=== PATIENT | female | born 2005 | race Caucasian/White ===

== ENCOUNTER 2025-03-29 12:42 | Day surgery (SDC) | payer BC, SELFPAY ==
[2025-03-29] VITALS (11 sets, daily range): BP systolic 101–121; BP diastolic 57–82; PULSE 69–103; RESP 12–20; TEMP 36.1–36.4; O2SAT 98–100
--- NOTE | ~2025-03-29 | CT_ITS ---
Yary Morales EXAMINATION: CT abdomen pelvis w con COMPARISON: None HISTORY: periumbilical pain, N/V TECHNIQUE: Axial images were obtained through the abdomen, pelvis post administration of IV contrast. Oral contrast was also administered. Coronal reconstruction images were obtained from the axial views. CT scan performed using dose optimization techniques including the following automated exposure control; adjustment of mA and/or kV; use of iterative reconstruction technique. Automatic exposure control was used to reduce radiation dose. Permanent radiation dose record is archived to PACS. FINDINGS: CT abdomen: LUNG BASES: The lung bases are clear. The visualized portions of the heart and pericardium are unremarkable. LIVER: Unremarkable, liver contours intact, no lesions. SPLEEN: Unremarkable. KIDNEYS: Right Kidney: Unremarkable. No calculi. No hydronephrosis. Left Kidney: Unremarkable. No calculi. No hydronephrosis ADRENAL GLANDS: Unremarkable. PANCREAS: Unremarkable. GALLBLADDER/BILIARY: Unremarkable. No biliary dilatation. STOMACH AND ESOPHAGUS: Visualized stomach and esophagus within normal limits. BOWEL/MESENTERY: Moderate fecal content. No colitis or diverticulitis. Appendix is thickened measuring 7 mm although there is no periappendiceal inflammation identified.. Mesentery normal. Small bowel normal. ADENOPATHY/RETROPERITONEUM: No lymphadenopathy. AORTA/VASCULATURE: Normal caliber aorta. FREE FLUID OR FREE AIR: No free fluid.. CT pelvis: SOLID ORGANS/REPRODUCTIVE: Unremarkable. BLADDER: Within normal limits. OSSEOUS STRUCTURES: No acute osseous abnormality.No suspicious lesions. OVERLYING SOFT TISSUES: Unremarkable. IMPRESSION: Correlate for symptoms of early appendicitis. Reviewed, dictated and finalized at location P.
--- OUTSIDE RECORDS SUMMARY | 2025-03-29 13:43 | XMS_ITS | Clinical Summary ---
Author Organization [facility] Address [address] [place] [address] Care Team Providers Care Transport Company Manager Name Role Phone Unavailable Primary Care Provider Unavailabl e Social History Tobacco Use Types Packs/Day Years Used Date Smoking Tobacco: Never Assessed Comments Unknown Sex and Gender Information Value Date Recorded Sex Assigned at Not on file Legal Sex Female 11:19 AM CDT Gender Identity Not on file Sexual Orientation Not on file Plan of Treatment Health Maintenance Due Date Last Done Comments Hepatitis C Virus (HCV) Screening 2004 Meningococcal B Immunization (1 of 2 - Standard) 2020 Hepatitis B Immunization (1 of 3 - 19+ 3-dose series) 2023 Influenza Immunization (#1) 02/27/202504/29, 05/10/2018, 07/31/2017, Additional history exists SARS-COV-2 Immunization (2 - 2024- season) 2025 10/24/2020 Respiratory Syncytial Virus (RSV) Immunization (Adult) (1 - 1-dose 75+ series) 2079 DTaP/Tdap/Td Immunization Discontinued 02/12/2016 Meningococcal Immunization (ACWY) Aged Out 02/12/2016 No longer eligible based on patient's age to complete this topic TdaP Immunization Completed 02/12/2016 Human Papillomavirus (HPV) Immunization Completed 08/23/2018, 02/18/2018 Pneumococcal Immunization Combined Aged Out No longer eligible based on patient's age to complete this topic Rotavirus Immunization Aged Out No lo nger eligible based on patient's age to complete this topic
--- OUTSIDE RECORDS SUMMARY | 2025-03-29 13:43 | XMS_ITS | Clinical Summary ---
Author Organization [facility] Address [address] [place] [address] Care Team Providers Care Textile Chemist Name Role Phone Ja Howe MD Unavailable [phone] Ja Howe MD Primary Care Provider [phone] Source Comments [facility],non-owned Affiliates and Associated Physician Practices is amultiple site organization consisting of ambulatory clinics and hospital sitesin [place], [place], [place] and [place]. This disclosure is being madepursuant to the Care Everywhere program and may not contain all information available regarding this patient. Last updated 18.[facility] Allergies Active Allergy Reactions Criticality Noted Date Comments Shellfish Allergy Urticaria Medium 01/30/2025 Medications * Be aware that medications may not be up to date on this document. Alwaysverify current medications with the patient. propranolol (Inderal) 20 MG tablet Take 1 (one) tablet by mouth 2 times daily 60 tablet 3 12/15/2024 Active citalopram (CeleXA) 10 MG tablet Take 1 (one) tablet by mouth once daily 90 tablet 1 02/20/2025 Active Active Problems Problem Noted Date Diagnosed Date Anxiety 01/31/2025 Screening for condition 02/18/2018 Overview (02/28/2018): 08/11/09 PPD neg 02/18/18 POC Lipid profile WNL Scoliosis 02/18/2018 Overview (02/28/2018): 02/18/18 Scoliosis series ordered Wears glasses 02/12/2016 Keratosis pilaris 08/08/2009 Overview (02/28/2018): 08/08/09 OTC Lachydrin Well child visit 2004 Overview (01/03/2019): 6 d/o 04 1 mo 06/17/09 2 mo 04 4 mo 04 5 mo 04 9 mo 02/17/05 12 mo 05/16/05 15 mo 08/19/05 18 mo 11/17/05 1 yo 05/26/06 2 yo 05/18/07 3 yo 05/16/08 4 yo 08/08/09 5 yo No WCC 7 yo No WCC 8 yo No WCC 9 yo No WCC 9 yo 02/09/15 10 yo 02/12/16 11 yo 02/20/17 12 yo 02/18/18 13 yo 01/03/19 Resolved Problems Problem Noted Date Diagnosed Date Resolved Date Hamstring strain 10/16/2016 02/18/2018 Acute pain of right knee 09/19/2016 Influenza 08/28/2015 02/18/2018 Overview (08/28/2015): 08/28/15 Tamiflu Head injury 09/14/2010 02/18/2018 Overview (09/29/2010): 09/14/10 [facility] ER Croup 08/26/2010 02/18/2018 Overview (07/21/2011): 08/26/10 oral steroids 07/11/11 oral steroids Otitis media, acute 10/02/2009 02/19/20 18 Overview (02/28/2018): 07/01/06 Right (amox) 07/20/06 Right (Cefzil - phone script) 04/03/08 Right (Cefzil) 07/10/08 Left (Zithromax) 10/02/09 Right (Zithromax) Acute sinusitis 10/02/2009 02/18/2018 Overview (10/02/2009): 10/02/09 Zithromax Streptococcal pharyngitis 05/28/2007 Overview (08/28/2015): 05/28/07 (cefzil) 07/11/11 (amox) 03/06/12 amox 08/28/15 Amoxicillin Closed head injury 01/05/2006 8 Overview (03/10/2009): [facility] - nl CT Head Pityriasis rosea 11/05/2005 02/18/2018 Overview (08/17/2011): 11/05/05 08/12/11 Labial adhesions 2004 02/18/2018 Encounters Date Type Department Care Team Description 02/20/2025 Refill [facility] - Pediatrics [address] [place] [address] Ja Howe MD MEDICATION REFILL 01/30/2025 11:00 AM CDT Office Visit [facility] - Pediatrics [address] [place] [address] Shelley Mcdonald MD Anxiety (Primary Dx); Screening for deficiency anemia 01/19/2025 Refill [facility] - Pediatrics [address] [facility] [address] [place] [address] Ja Howe MD MEDICATION REFILL from Last 3 Months Immunizations Immunization Administration Dates Next Due Covid Pfizer primary Monoval ent 12+ yr 0.3ml 08/26/2021 Covid Pfizer primary monoval ent 12+ yr 0.3mL Purple cap 11/14/2020,10/24/2020 DTaP VACCINE IM (6wk-6yrs) 08/08/2009,,2004,09/17,2004 HEP A PEDS 2 DOSE 05/26/2006,11/17/2005 HEP B VACCINE, PED/ADOL 2004,09/17,2004,05/15 HIB BOOSTER 08/19/2005, 5,2004,07/19 Human Papilloma Virus Nineva lent Vaccine 08/23/2018,02/18/2018 INFLUENZA VACCINE, QUADR. (F LUZONE; FLULAVAL; FLUARIX; AFLURIA QUADRIVALENT; 6MO+), 0.5 ML (IIV4) 05/17/2019,05/10/2018,07/31/2017 Influenza Nasal 04/15/2012 CULLEN VACCINE QUAD LAIV4 PF NASAL 05/02/2013 MENINGOCOCAL MENINGITIS 01/04/2021 MENINGOCOCCAL ACWY (MCV4P) VAC IM 02/12/2016 MENINGOCOCCAL B VACCINE 01/15/2022,01/04/2021 MMR 08/08/2009,05/16/2005 PNEUMOCOCCAL CONJ, PEDS 08/19/2005,11/18,2004,07/19 POLIO IPV 08/08/2009, 5,2004,07/19 TDAP (7yrs+) 02/12/2016 VARICELLA 08/08/2009,05/16/2005 Social History Tobacco Use Types Packs/Day Years Used Date Smoking Tobacco: Never Smokeless Tobacco: Never Alcohol Use Standard Drinks/Week Comments Not Asked 0 (1 standard drink = 0.6 oz pur e alcohol) PHQ-2 Answer Date Recorded Patient Health Questionnaire-2 Score 2 01/30/2025 Comments No Sex and Gender Information Value Date Recorded Sex Assigned at Not on file 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 Gender Identity Not on file Sexual Orientation Not on file Last Filed Vital Signs Vital Sign Reading Time Taken Comments Blood Pressure 110/62 01/30/2025 11:39 AM CDT Pulse 101 01/30/2025 11:39 AM CDT Temperature 36.6 C (97.9 F) 01/30/2025 11:39 AM CDT Respiratory Rate - - Oxygen Saturation 99% 01/30/2025 11:39 AM CDT Inhaled Oxygen Concentration - - Weight 61.5 kg (135 lb 9.6 oz) 01/30/2025 11:39 AM CDT Height 165.1 cm (5' 5) 01/30/2025 11:39 AM CDT Body Mass Index 22.57 01/30/2025 11:39 AM CDT Plan of Treatment Health Maintenance Due Date Last Done Comments HIV SCREENING 2019 MENINGOCOCCAL (Group B) VACC INE SHARED DECISION-MAKING (1 of 2 - Standard) 02/12/2022 01/15/2022, 01/04/2021 HEPATITIS C SCREENING 05/10/2022 CHLAMYDIA/GONORRHEA SCREENING 08/05/2023 08/05/2022 COVID-19 VACCINE (2024- 6 season) 2025 08/26/2021, 11/14/2020, 10/24/2020 INFLUENZA VACCINE (#1) 2025 9, 05/10/2018, 07/31/2017, Additional history exists DTAP/TDAP/TD VACCINES (7 - T d or Tdap) 02/11/2026 02/12/2016, 08/08/2009, 08/19/2005, Additional history exists ZOSTER VACCINE (1 of 2) 2054 HEPATITIS B VACCINE Completed 2004, 2004, 2004, Additional history exists HIB VACCINE Completed 08/19/2005, 10/28, 2004, Additional history exists PNEUMOCOCCAL VACCINE Completed 08/19/2005, 2004, 2004, Additional history exists HPV VACCINE Completed 08/23/2018, 02/18/2018 MENINGOCOCCAL GROUPS A/C/Y/W VACCINE Completed 01/04/2021, 02/12/2016 DEPRESSION SCREENING Completed 01/30/2025 Goals Goal Patient Goal Type Associated Problems Recent Progress Patient-Stated? Author Use safety retraint in car Lifestyle On track( 019 1:28 PM CDT) No Anne-Marie Vazquez Procedures Procedure Name Priority Date/Time Associated Diagnosis Comments HEMOGLOBIN - POINT OF CARE (AMB) Routine 01/30/2025 12:11 PM CDT Screening for deficiency anemia from Last 3 Months Results * HEMOGLOBIN - POINT OF CARE (AMB) (01/30/2025 12:11 PM CDT) Hemoglobin POCT 12.9 12.0 - 15.0 gm/dL DERICK JARQUIN Blood BLOOD SPECIMEN / Unknown 01/30/2025 12:11 PM CDT us Shelley Mcdonald MD LAB - POINT OF CARE ORDERABLES Final Result Performing Organization Address City/State/[facility] Co de Phone Number [facility] BRION[facility] JARQUIN [address] [place], [place] [address] [phone] from Last 3 Months Insurance [facility] Address: [facility] [address] [place] [address] [employer] Care Teams Textile Chemist Relationship Specialty Start Date End Date Ja Howe MD PCP - Pediatrics 10/02/09 Ja Howe MD PCP - General Pediatrics 12/13/14
--- OUTSIDE RECORDS SUMMARY | 2025-03-29 13:43 | XMS_ITS | Clinical Summary ---
Author Organization [facility] Address [address] [place] [address] Care Team Providers Care Blindstitch Lapel Padder Name Role Phone Shelley Mcdonald MD Primary Care Provider [phone] Allergies No known active allergies Medications Tri Femynor 0.18/0.215/0.25 mg-35 mcg (28) per tablet Take 1 tablet by mouth daily 10/31/19 22 Active triamcinolone (KENALOG) 0.1 % ointment APPLY TO AFFECTED AREA TWICE A DAY X2 WEEKS. MAY USE 2 WEEKS ON THEN 2 WEEKS OFF 09/17/19 22 Active ondansetron ODT (ZOFRAN-ODT) 4 mg disintegrating tablet Take 1 tablet (4 mg total) by mouth every 12 (twelve) hours as needed for nausea or vomiting Dissolve in mouth just prior to taking medications. 30 tablet 1 02/29/20 22 Active Additional Information Patient not taking.Reported on 04/01/2024 citalopram (CeleXA) 10 mg tablet Take 0.5 tablets (5 mg total) by mouth daily 07/04/19 23 Active nitrofurantoin monohydrate (MACROBID) 100 mg capsule TAKE 1 CAPSULE BY MOUTH EVERY DAY X1 DOSE AFTER SEXUAL ACTIVITY 06/17/20 22 Active phenazopyridine (PYRIDIUM) 200 mg tablet Take 200 mg by mouth 3 (three) times a day 06/14/20 22 Active sertraline (ZOLOFT) 25 mg tablet Take 25 mg by mouth daily 05/19/20 22 Active omeprazole (PriLOSEC) 20 mg capsule Take 1 capsule (20 mg total) by mouth daily 30 capsule 5 07/16/19 23 Active Lyssa Fe 07/18, 28, 1 mg-20 mcg (21)/75 mg (7) per tablet 12/29/19 24 Active Hospital, Clinic, or Other Facility Administered Medication Ordered Dose Route Frequency Start Date End Date Status etonogestreL (NEXPLANON) implant 68 mgIndications:Pregna ncy Contraception 68 mg subderm Continuous (implanted device) 04/01/2024 04/01/2027 Active Active Problems Problem Noted Date Diagnosed Date Gastritis, Helicobacter pylori 03/24/2022 Lactose intolerance 03/24/2022 Abdominal pain, epigastric 11/18/2021 Weight loss 11/18/2021 Surgical History Surgery Date Site/Laterality Comments NO PAST SURGERIES Medical History Medical History Date Comments Known health problems: none Family History Medical History Relation Name Comments Breast cancer Neg Hx Inflammatory bowel disease Neg Hx Ovarian cancer Neg Hx Uterine cancer Neg Hx Social History Tobacco Use Types Packs/Day Years Used Date Smoking Tobacco: Never Assessed Tobacco Cessation:Counseling Given: No Alcohol Use Standard Drinks/Week Comments Never 0 (1 standard drink = 0.6 oz pur e alcohol) Comments No Sex and Gender Information Value Date Recorded Sex Assigned at Not on file 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 Gender Identity Not on file Sexual Orientation Not on file Obstetrics History Para Term AB IAB SAB Ectopic Multiple Livin g Live Births 0 0 0 0 0 0 0 0 0 0 0 Comments 13/0/0 Last Filed Vital Signs Vital Sign Reading Time Taken Comments Blood Pressure 112/70 04/01/2024 10:23 AM CDT Pulse 85 02/24/2022 3:34 PM CDT Temperature 36.2 C (97.1 F) 02/24/2022 3:34 PM CDT Respiratory Rate 16 02/24/2022 3:34 PM CDT Oxygen Saturation 99% 02/24/2022 3:34 PM CDT Inhaled Oxygen Concentration - - Weight 68 kg (150 lb) 04/01/2024 10:23 AM CDT Height 160 cm (5' 3) 04/01/2024 10:23 AM CDT Body Mass Index 26.57 04/01/2024 10:23 AM CDT Plan of Treatment Health Maintenance Due Date Last Done Comments Chlamydia and Gonorrhea (GC/CT) Screening 2004 Depression Screening 2004 Hepatitis C Screening 2004 Meningococcal B Vaccine (1 of 2 - Standard) 2020 Regular Well Visit/Exam 18-64 2022 Covid-19 Vaccine ( - season) 2025 08/26/2021, 11/14/2020, 10/24/2020 Influenza Vaccine (#1) 2025 9, 05/10/2018, 07/31/2017, Additional history exists DTaP/Tdap/Td Vaccine (7 - Td or Tdap) 02/11/2026 02/12/2016, 08/08/2009, 08/19/2005, Additional history exists Hepatitis B Screening Completed 2004 , 2004, 2004, Additional history exists Varicella Vaccines Completed 08/08/2009, 05/16/2005 Meningococcal Vaccine Aged Out 02/12/2016 No amy radha eligible based on patient's age to complete this topic HPV Vaccines Completed 08/23/2018, 02/18/2018 Pneumococcal vaccine <65 Aged Out No longer eligible based on patient's age to complete this topic Insurance [employer] [address] [place] [id number] [employer] Care Teams Blindstitch Lapel Padder Relationship Specialty Start Date End Date Shelley Mcdonald MD PCP - General 02/13/20
--- OUTSIDE RECORDS SUMMARY | 2025-03-29 13:43 | XMS_ITS | Encounter Summary ---
Author Organization [facility] Address [address] [place] [address] Care Team Providers Care Environmental Analyst Name Role Phone Ja Howe MD Unavailable [phone] Ja Howe MD Primary Care Provider [phone] Reason for Visit * Reason Onset Date Comments MEDICATION REFILL 12/15/2024 Encounter Details Date Type Department Care Team (Late st Contact Info) Description 12/15/2024 Telephone [facility] - Pediatrics [address] [place] [address] Ja Howe MD [address] [place] [address] MEDICATION REFILL Social History Tobacco Use Types Packs/Day Years Used Date Smoking Tobacco: Never Smokeless Tobacco: Never Alcohol Use Standard Drinks/Week Comments Not Asked 0 (1 standard drink = 0.6 oz pur e alcohol) Comments No Sex and Gender Information Value Date Recorded Sex Assigned at Not on file 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 * Telephone Encounter - Ketty Seals - 12/15/2024 10:23 AM CDT MEDICATION REFILL REQUEST Allergies Reviewed: Yes Verified Pharmacy with patient: Yes Outstanding lab work: No If yes, please direct to have completed. Last Office Visit: 09/05/2024 Last Video Visit with PCP: Visit date not found Next Appointment with PCP: 01/30/2025 Last Refill: 12/16/2023 Propranolol Hcl 20 mg oral tablet Sent to RX REFILL POOL for approval/denial. documented in this encounter Plan of Treatment Not on file documented as of this encounter Goals Goal Patient Goal Type Associated Problems Recent Progress Patient-Stated? Author Use safety retraint in car Lifestyle On track( 019 1:28 PM CDT) No Anne-Marie Vazquez documented as of this encounter Visit Diagnoses Not on filedocumented in this encounter Care Teams Environmental Analyst Relationship Specialty Start Date End Date Ja Howe MD PCP - Pediatrics 10/02/09 Ja Howe MD PCP - General Pediatrics 12/13/14 documented as of this encounter
[2025-03-29 14:40] LABS: BEDSIDEPREGUCG Negative (Negative)
[2025-03-29 14:43] LABS: Hematocrit 38.1 % (37.0-47.0); Hemoglobin 12.2 g/dL (12.0-15.0); Mean Corpuscular HGB Conc 32.0 g/dl (32-36); Mean Corpuscular Hemoglobin 28.0 pg (26-34); Mean Corpuscular Volume 87.6 fl (80-100); Platelet Count Result 307 k/mm3 (150-375); Red Blood Count 4.35 M/mm3 (4.2-5.4); White Blood Count 12.8 K/mm3 (4.5-10.0)
[2025-03-29 14:58] LABS: Alanine Aminotransferase 18 U/L (6-35); Albumin Level 4.5 g/dL (3.5-5.1); Alkaline Phosphatase 124 U/L (38-126); Anion Gap 10 mmol/L (4-12); Aspartate Amino Transferase 23 U/L (14-36); Bilirubin,Total 0.7 mg/dL (0.2-1.3); Blood Urea Nitrogen 11 mg/dL (7-17); Calcium 9.4 mg/dL (8.4-10.2); Carbon Dioxide 22 mmol/L (22-30); Chloride 104 mmol/L (98-107); Estimated CRCL calculation 114 ml/min; Estimated Glomerular Filt Rate > 60; Glucose 104 mg/dL (65-110); Lipase 50 U/L (23-300); Potassium 4.2 mmol/L (3.4-5.0); Sodium 136 mmol/L (137-145); Total Protein 8.2 g/dL (6.3-8.2)
[2025-03-29 14:59] LABS: Add Urine Microscopic? YES; Appearance Urine Cloudy (Clear); Glucose Urine UA Negative (Negative); Leukocyte Esterase Ur 1+ LEU/UL (Negative); Need Manual Microscopic Reviewed; Nitrate Urine Negative (Negative); Non Pathogenic Casts 0-2; Specific Grav Ur 1.023 (1.001-1.035)
--- NOTE | 2025-03-29 15:04 | ED_ITS ---
HPI - Abdominal Pain General Chief Complaint: Abdominal Pain <RENUKA Newberry Last Filed: 03/29/25 16:12> Stated Complaint: Uncontrolled N/V x 6hrs-abdominal pain <RENUKA Newberry Last Filed: 03/29/25 16:12> Time Seen by Provider: 03/29/25 13:07 <RENUKA Newberry Last Filed: 03/29/25 16:12> Source: patient <RENUKA Newberry Last Filed: 03/29/25 16:12> Mode of arrival: ambulatory <RENUKA Newberry Last Filed: 03/29/25 16:12> Limitations: no limitations <RENUKA Newberry Last Filed: 03/29/25 16:12> History of Present Illness HPI narrative: Patient is a 19-year-old female who presents the ED with report of abdominal pain. Patient reports having diffuse abdominal pain since around 5:00 a.m. this morning. Began in her periumbilical region and spreads diffusely throughout her mid to lower abdomen. Reports nausea, vomiting, difficulty keeping down food and drink. Denies diarrhea, fevers, constipation, urinary complaints. <RENUKA Newberry Last Filed: 03/29/25 16:12> Related Data Allergies/Adverse Reactions: Allergies Allergy/AdvReac Type Severity Reaction Status Date / Time shellfish derived AdvReac Intermediate Hives Verified 03/29/25 12:59 <RENUKA Newberry Last Filed: 03/29/25 16:12> Review of Systems 2 Review of Systems: All systems reviewed & are unremarkable except as noted in HPI. <RENUKA Newberry Last Filed: 03/29/25 16:12> All systems reviewed & are unremarkable except as noted in HPI and below < RENUKA Newberry Last Filed: 03/29/25 16:12> PMFSH Past Medical History Medical History: Medical History Headaches due to old head injury Depression <Genevieve Chaudhry PA-C - Last Filed: 03/29/25 16:12> Surgical History Surgical History: Surgical History History of esophagogastroduodenoscopy (EGD) <Genevieve Chaudhry PA-C - Last Filed: 03/29/25 16:12> Exam 2 Narrative: GENERAL: Well appearing, well-nourished, non-toxic, in no acute distress. HEAD: Normocephalic, atraumatic. RESPIRATORY: Airway patent, respirations nonlabored. Clear to auscultation bilaterally, no rales, rhonchi, wheezing. CARDIOVASCULAR: Regular rate and rhythm without murmurs, rubs, or gallops. ABDOMINAL: Soft, mild diffuse tenderness throughout lower abdomen/periumbilical region, no rebound, nondistended. Normoactive BS. MUSCULOSKELETAL: Moves all extremities. No gross deformities. SKIN: Warm, dry, normal color. NEURO: A&O X3. Speech clear. PSYCHIATRIC: Appropriate mood and affect. Normal interaction. <Genevieve Chaudhry PA-C - Last Filed: 03/29/25 16:12> Course ZOOLOGY TEACHER/PA Physician Supervision This visit was performed by both a physician and an APC. I performed all aspects of the MDM as documented. <Young Clark MD - Last Filed: 03/29/25 18:46> Vital Signs Vital signs: Vital Signs Temperature 97.6 F 03/29/25 12:54 Pulse Rate 69 03/29/25 12:54 Respiratory Rate 19 03/29/25 12:54 Blood Pressure 116/57 L 03/29/25 12:54 Pulse Oximetry 100 03/29/25 12:54 Oxygen Delivery Room Air 03/29/25 12:54 Temperature 97.0 F L 03/29/25 18:05 Pulse Rate 85 03/29/25 18:30 Respiratory Rate 20 03/29/25 18:30 Blood Pressure 121/69 03/29/25 18:30 Pulse Oximetry 99 03/29/25 18:30 Oxygen Delivery Room Air 03/29/25 18:30 Oxygen Flow Rate 8 03/29/25 18:15 <Genevieve Chaudhry PA-C - Last Filed: 03/29/25 16:12> Vital Signs Temperature 97.6 F 03/29/25 12:54 Pulse Rate 69 03/29/25 12:54 Respiratory Rate 19 03/29/25 12:54 Blood Pressure 116/57 L 03/29/25 12:54 Pulse Oximetry 100 03/29/25 12:54 Oxygen Delivery Room Air 03/29/25 12:54 Temperature 97.0 F L 03/29/25 18:05 Pulse Rate 85 03/29/25 18:30 Respiratory Rate 20 03/29/25 18:30 Blood Pressure 121/69 03/29/25 18:30 Pulse Oximetry 99 03/29/25 18:30 Oxygen Delivery Room Air 03/29/25 18:30 Oxygen Flow Rate 8 03/29/25 18:15 <Young Clark MD - Last Filed: 03/29/25 18:46> MDM - Abdominal Pain MDM Narrative Medical decision making narrative: Patient presented to ED with abdominal pain that began around 5:00 a.m. this morning, nausea, vomiting. Vital signs stable upon arrival. Patient afebrile. Cbc with white blood cell count of 12.8, 88% neutrophils. CMP unremarkable. UA without significant signs of infection. Urine is negative. CT scan of abdomen/pelvis was obtained and consistent with possible early appendicitis. Will discuss with General surgery. Patient is feeling improved with supportive therapy in the ED but still having some discomfort throughout lower abd. [place] and Dr. Hardwick with general surgery in the ED to see patient. Will take patient to the OR today for appendectomy. Patient in agreement with plan. Given dose of zosyn. <Genevieve Chaudhry PA-C - Last Filed: 03/29/25 16:12> Patient presented to ED with abdominal pain that began around 5:00 a.m. this morning, nausea, vomiting. Vital signs stable upon arrival. Patient afebrile. Cbc with white blood cell count of 12.8, 88% neutrophils. CMP unremarkable. UA without significant signs of infection. Urine is negative. CT scan of abdomen/pelvis was obtained and consistent with possible early appendicitis. Will discuss with General surgery. Patient is feeling improved with supportive therapy in the ED but still having some discomfort throughout lower abd. [place] and Dr. Hardwick with general surgery in the ED to see patient. Will take patient to the OR today for appendectomy. Patient in agreement with plan. Given dose of zosyn. -- This visit was performed by both a physician and an APC. I performed all aspects of the MDM as documented. <Young Clark MD - Last Filed: 03/29/25 18:46> Medical Records Attestation: I reviewed the patient's medical records. <Genevieve Chaudhry PA-C - Last Filed: 03/29/25 16:12> Lab Data Attestation: I reviewed the patient's lab results. <Genevieve Chaudhry PA-C - Last Filed: 03/29/25 16:12> Result diagrams: 03/29/25 14:29 03/29/25 14:29 <Genevieve Chaudhry PA-C - Last Filed: 03/29/25 16:12> Labs: Lab Results 03/29/25 03/29/25 Range/Units 14:29 14:30 WBC 12.8 H (4.5-10.0) K/mm3 RBC 4.35 (4.2-5.4) M/mm3 Hgb 12.2 (12.0-15.0) g/dL Hct 38.1 (37.0-47.0) % MCV 87.6 (80-100) fl MCH 28.0 (26-34) pg MCHC 32.0 (32-36) g/dl RDW 12.5 (11.5-14.5) % Plt Count 307 (150-375) k/mm3 MPV 9.6 (7.4-10.4) fl Immature Gran % (Auto) Not Reportable Neut % (Auto) Not Reportable Lymph % (Auto) Not Reportable [place] % (Auto) Not Reportable Eos % (Auto) Not Reportable Baso % (Auto) Not Reportable Lymph # (Auto) Not Reportable [place] # (Auto) Not Reportable Eos # (Auto) Not Reportable Baso # (Auto) Not Reportable Abs Immat Gran (auto) Not Reportable Absolute Neuts (auto) Not Reportable Absolute Nucleated RBC Not Reportable Total Counted 100 Neutrophils % (Manual) 88 H (46-73) % Band Neutrophils % 0 (0-6) % Lymphocytes % (Manual) 11 L (18-44) % Monocytes % (Manual) 1 L (3-9) % Eosinophils % (Manual) 0 (0-4) % Basophils % (Manual) 0 (0-1) % Nucleated RBC % Not Reportable Abs Neuts (Manual) 11.26 H (1.3-6.7) K/mm3 Abs Lymphs (Manual) 1.40 (1.1-4.5) K/mm3 Abs Monocytes (Manual) 0.12 (0.1-0.90) K/mm3 Absolute Eos (Manual) 0.00 L (0.02-0.50) K/mm3 Abs Basophils (Manual) 0.00 (0.0-0.1) K/mm3 Atypical Lymphocytes Present Platelet Estimate Adequate (Adequate) Schistocytes None seen Sodium 136 L (137-145) mmol/L Potassium 4.2 (3.4-5.0) mmol/L Chloride 104 (98-107) mmol/L Carbon Dioxide 22 (22-30) mmol/L Anion Gap 10 (4-12) mmol/L BUN 11 (7-17) mg/dL Creatinine 0.60 L (0.7-1.0) mg/dL Estim Creat Clear Calc 114 ml/min Estimated GFR > 60 (59 - ) Glucose 104 (65-110) mg/dL Calcium 9.4 (8.4-10.2) mg/dL Total Bilirubin 0.7 (0.2-1.3) mg/dL AST 23 (14-36) U/L ALT 18 (6-35) U/L Alkaline Phosphatase 124 (38-126) U/L Total Protein 8.2 (6.3-8.2) g/dL Albumin 4.5 (3.5-5.1) g/dL Lipase 50 (23-300) U/L Urine Color Yellow (Yellow) Urine Appearance Cloudy H (Clear) Urine pH 5.5 (5.0-9.0) Ur Specific [place] 1.023 (1.001-1.035) Urine Protein Negative (Negative) mg/dL Urine Glucose (UA) Negative (Negative) mg/dL Urine Ketones Trace H (Negative) mg/dL Ur Blood (Man) Trace (Negative) Urine Nitrate Negative (Negative) Urine Bilirubin Negative (Negative) Urine Urobilinogen 0.2 (<2.0) mg/dL Add Ur Microanalysis Reviewed Leukocyte Esterase Rfl 1+ H (Negative) JOZEF/UL Urine RBC 6-10 H (0-2) /hpf Urine WBC 0-5 (0-3) /hpf Ur Squamous Epith Cells Few (Few) /hpf Urine Bacteria 1+ H /hpf Urine Casts 0-2 POC Urine HCG, Qual Negative (Negative) <Genevieve Chaudhry PA-C - Last Filed: 03/29/25 16:12> Lab Results 03/29/25 03/29/25 Range/Units 14:29 14:30 WBC 12.8 H (4.5-10.0) K/mm3 RBC 4.35 (4.2-5.4) M/mm3 Hgb 12.2 (12.0-15.0) g/dL Hct 38.1 (37.0-47.0) % MCV 87.6 (80-100) fl MCH 28.0 (26-34) pg MCHC 32.0 (32-36) g/dl RDW 12.5 (11.5-14.5) % Plt Count 307 (150-375) k/mm3 MPV 9.6 (7.4-10.4) fl Immature Gran % (Auto) Not Reportable Neut % (Auto) Not Reportable Lymph % (Auto) Not Reportable [place] % (Auto) Not Reportable Eos % (Auto) Not Reportable Baso % (Auto) Not Reportable Lymph # (Auto) Not Reportable [place] # (Auto) Not Reportable Eos # (Auto) Not Reportable Baso # (Auto) Not Reportable Abs Immat Gran (auto) Not Reportable Absolute Neuts (auto) Not Reportable Absolute Nucleated RBC Not Reportable Total Counted 100 Neutrophils % (Manual) 88 H (46-73) % Band Neutrophils % 0 (0-6) % Lymphocytes % (Manual) 11 L (18-44) % Monocytes % (Manual) 1 L (3-9) % Eosinophils % (Manual) 0 (0-4) % Basophils % (Manual) 0 (0-1) % Nucleated RBC % Not Reportable Abs Neuts (Manual) 11.26 H (1.3-6.7) K/mm3 Abs Lymphs (Manual) 1.40 (1.1-4.5) K/mm3 Abs Monocytes (Manual) 0.12 (0.1-0.90) K/mm3 Absolute Eos (Manual) 0.00 L (0.02-0.50) K/mm3 Abs Basophils (Manual) 0.00 (0.0-0.1) K/mm3 Atypical Lymphocytes Present Platelet Estimate Adequate (Adequate) Schistocytes None seen Sodium 136 L (137-145) mmol/L Potassium 4.2 (3.4-5.0) mmol/L Chloride 104 (98-107) mmol/L Carbon Dioxide 22 (22-30) mmol/L Anion Gap 10 (4-12) mmol/L BUN 11 (7-17) mg/dL Creatinine 0.60 L (0.7-1.0) mg/dL Estim Creat Clear Calc 114 ml/min Estimated GFR > 60 (59 - ) Glucose 104 (65-110) mg/dL Calcium 9.4 (8.4-10.2) mg/dL Total Bilirubin 0.7 (0.2-1.3) mg/dL AST 23 (14-36) U/L ALT 18 (6-35) U/L Alkaline Phosphatase 124 (38-126) U/L Total Protein 8.2 (6.3-8.2) g/dL Albumin 4.5 (3.5-5.1) g/dL Lipase 50 (23-300) U/L Urine Color Yellow (Yellow) Urine Appearance Cloudy H (Clear) Urine pH 5.5 (5.0-9.0) Ur Specific [place] 1.023 (1.001-1.035) Urine Protein Negative (Negative) mg/dL Urine Glucose (UA) Negative (Negative) mg/dL Urine Ketones Trace H (Negative) mg/dL Ur Blood (Man) Trace (Negative) Urine Nitrate Negative (Negative) Urine Bilirubin Negative (Negative) Urine Urobilinogen 0.2 (<2.0) mg/dL Add Ur Microanalysis Reviewed Leukocyte Esterase Rfl 1+ H (Negative) JOZEF/UL Urine RBC 6-10 H (0-2) /hpf Urine WBC 0-5 (0-3) /hpf Ur Squamous Epith Cells Few (Few) /hpf Urine Bacteria 1+ H /hpf Urine Casts 0-2 POC Urine HCG, Qual Negative (Negative) <Young Clark MD - Last Filed: 03/29/25 18:46> Imaging Data Attestation: I personally reviewed and interpreted this imaging study as follows: < Genevieve Chaudhry PA-C - Last Filed: 03/29/25 16:12> Radiologist's impression: ITS Impressions Abdomen/Pelvis CT 03/29/25 15:19 IMPRESSION: Correlate for symptoms of early appendicitis. <Genevieve Chaudhry PA-C - Last Filed: 03/29/25 16:12> ITS Impressions Abdomen/Pelvis CT 03/29/25 15:19 IMPRESSION: Correlate for symptoms of early appendicitis. <Young Clark MD - Last Filed: 03/29/25 18:46> Discharge Plan Discharge Clinical Impression: Appendicitis Qualifiers: Appendicitis type: acute appendicitis Acute appendicitis type: with localized peritonitis Appendicitis gangrene presence: without gangrene Appendicitis perforation presence: without perforation Appendicitis abscess presence: without abscess Qualified Code(s): K35.30 - Acute appendicitis with localized peritonitis, without perforation or gangrene <Genevieve Chaudhry PA-C - Last Filed: 03/29/25 16:12> Patient Disposition: Still a Patient <RENUKA Newberry Last Filed: 03/29/25 16:12> Condition: Stable <Genevieve Chaudhry PA-C - Last Filed: 03/29/25 16:12>
[2025-03-29 15:07] LABS: Band Neutrophils Percent 0 % (0-6); Basophils Absolute Manual 0.00 K/mm3 (0.0-0.1); Basophils Percent Manual 0 % (0-1); Eosinophils Absolute Manual 0.00 K/mm3 (0.02-0.50); Eosinophils Percent Manual 0 % (0-4); Lymphocytes Absolute Manual 1.40 K/mm3 (1.1-4.5); Lymphocytes Percent Manual 11 % (18-44); Monocytes Absolute Manual 0.12 K/mm3 (0.1-0.90); Monocytes Percent Manual 1 % (3-9); Neutrophils Absolute Manual 11.26 K/mm3 (1.3-6.7); Neutrophils Percent Manual 88 % (46-73); Total Cells Counted 100
[2025-03-29 15:09] LABS: Schistocytes None Seen
[2025-03-29] MEDS: SODIUM CHLORIDE 0.9% IV 1,000 ML 999 ML IV CONT (15:28)
[2025-03-29] MEDS: ONDANSETRON INJ 4 MG/2 ML VIAL IV PUSH (15:28)
--- NOTE | 2025-03-29 16:11 | P.HP_ITS ---
H&P: HPI History of Present Illness Date/Time: 03/29/25 16:12 Chief Complaint: Abdominal pain Narrative: This is a 19-year-old female with a history depression, and headaches, who presented to the ED today with complaints abdominal pain. She reports waking up around 5:00 a.m. this morning with cramping periumbilical pain. Her pain progressed throughout the day and started to radiate across her entire lower a bdomen. She developed nausea and vomiting, and came into the ED for evaluation. Labs showed a white blood cell count a 12,800. CT scan of the abdomen and pelvis showed a 7 mm appendix without periappendiceal inflammatory stranding. She is now seen in the ED. No previous abdominal surgeries. She does report a history of an ovarian cyst that ruptured a few years ago, but her pain at that time was much different than this episode of pain. Review of Systems Review of Systems: All systems reviewed & are unremarkable except as noted in HPI and below PMFSH Past Medical History Medical History Headaches due to old head injury Depression Surgical History Surgical History History of esophagogastroduodenoscopy (EGD) Meds Home Medications and Allergies Allergies Allergy/AdvReac Type Severity Reaction Status Date / Time shellfish derived AdvReac Intermediate Hives Verified 03/29/25 12:59 Vital Signs Vital Signs - 24 hr 03/29/25 12:54 Temperature 97.6 F Pulse Rate 69 Respiratory Rate 19 Blood Pressure 116/57 L Pulse Oximetry 100 Oxygen Delivery Room Air Exam Const: General: comfortable and no acute distress Nutritional Appearance: thin Orientation/consciousness: patient oriented x3 HENMT: Head: normocephalic and atraumatic Ears: hearing grossly normal bilaterally Mouth: Yes moist mucous membranes Eyes: General: appearance normal, both eyes and all related structures Pupils: Equal, round and reactive pupils present Neck: Neck: normal visual inspection and full ROM Resp: Effort & Inspection: no respiratory distress Auscultation: clear to auscultation bilaterally Cardio: Rate: regular rate Rhythm: regular rhythm Peripheral pulses: Peripheral pulses 2+ throughout GI: Inspection: non-distended GI Palp: Yes Soft to palpation, Yes Tenderness to palpation present (GI) (RLQ pain, suprapubic pain, LLQ pain with radiation into the RLQ ), No Guarding due to palpation present (GI), Yes No hepatosplenomegaly present, No Hernia present and No Rebound tenderness present Auscultation: normal bowel sounds Rectal Exam: deferred Skin: General skin exam: normal color Neuro: General: moves all extremities and no focal motor deficits Speech: normal speech Motor exam (neuro): 5/5 motor strength present throughout Extrem: General: normal to inspection and no edema Psych: Mental Status: mental status grossly normal Attitude: cooperative Insight: Good insight present (Psych) Judgement: Good judgement present (Psych) H&P: Results Labs Labs: Short CBC 03/29/25 Range/Units 14:29 WBC 12.8 H (4.5-10.0) K/mm3 Hgb 12.2 (12.0-15.0) g/dL Hct 38.1 (37.0-47.0) % Plt Count 307 (150-375) k/mm3 BMP 03/29/25 14:29 Sodium 136 L Potassium 4.2 Chloride 104 Carbon Dioxide 22 BUN 11 Creatinine 0.60 L Glucose 104 Calcium 9.4 Liver Function 03/29/25 Range/Units 14:29 Total Bilirubin 0.7 (0.2-1.3) mg/dL AST 23 (14-36) U/L ALT 18 (6-35) U/L Alkaline Phosphatase 124 (38-126) U/L Albumin 4.5 (3.5-5.1) g/dL Urine 03/29/25 Range/Units 14:29 Urine Color Yellow (Yellow) Urine Appearance Cloudy H (Clear) Urine pH 5.5 (5.0-9.0) Ur Specific [place] 1.023 (1.001-1.035) Urine Protein Negative (Negative) mg/dL Urine Glucose (UA) Negative (Negative) mg/dL Imaging CT scan - abdomen: Radiologist's impression: ITS Impressions Abdomen/Pelvis CT 03/29/25 15:19 IMPRESSION: Correlate for symptoms of early appendicitis. Assessment and Plan Assessment and plan (1) Appendicitis: Qualifiers: Appendicitis abscess presence: without abscess Appendicitis gangrene presence: without gangrene Appendicitis perforation presence: without perforation Appendicitis type: acute appendicitis Acute appendicitis type: with localized peritonitis Qualified Code(s): K35.30 - Acute appendicitis with localized peritonitis, without perforation or gangrene Code(s): K37 - Unspecified appendicitis Status: Acute Assessment and Plan: * The patient presents with a 12-hour history of lower abdominal pain. Workup in the ED showed mild leukocytosis and the CT scan showed a [address] reviewed by Dr. Hardwick and her appendix does appear dilated, consistent with acute appendicitis. We would recommend starting broad-spectrum IV antibiotics, IV fluids, and keep her NPO. We discussed both nonoperative and surgical treatment options with the patient in detail. We discussed the option of proceeding with a laparoscopic appendectomy by Dr. Hardwick under general anesthesia. Description of the procedure, risks, benefits, alternatives, and expected recovery were discussed. She agrees to proceed with surgery. Will add her onto the OR schedule today. Plan I have discussed the patient's case and plan of care with Dr. Hardwick.
--- OUTSIDE RECORDS SUMMARY | 2025-03-29 16:21 | XMS_ITS | Clinical Summary ---
Author Organization [facility] Address [address] [place] [address] Care Team Providers Care Knife Machine Operator Name Role Phone Ja Howe MD Unavailable [phone] Ja Howe MD Primary Care Provider [phone] Source Comments [facility],non-owned Affiliates and Associated Physician Practices is amultiple site organization consisting of ambulatory clinics and hospital sitesin [place], [place], [place] and [place]. This disclosure is being madepursuant to the Care Everywhere program and may not contain all information available regarding this patient. Last updated 18.[facility] Allergies Active Allergy Reactions Criticality Noted Date [...] Head injury 09/14/2010 02/18/2018 Overview (09/29/2010): 09/14/10 [facility] Croup 08/26/2010 02/18/2018 Overview (07/21/2011): 08/26/10 [...] Closed head injury 01/05/2006 8 Overview (03/10/2009): [facility] - n[place] CT Head Pityriasis rosea 11/05/2005 02/18/2018 Overview (08/17/2011): 11/05/05 08/12/11 Labial adhesions 2004 02/18/2018 Encounters Date Type Department Care Team Description 02/20/2025 Refill [facility] Medical [facility] - Pediatrics [address] [place] [address] Ja Howe MD MEDICATION REFILL 01/30/2025 11:00 AM CDT Office Visit [facility] - Pediatrics [address] [place] [address] Shelley Mcdonald MD Anxiety (Primary Dx); Screening for deficiency anemia 01/19/2025 Refill [facility] - Pediatrics 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 [place], [place] [address] [phone] from Last 3 Months Insurance ANTHEM ANTHEM Care Teams Knife Machine Operator Relationship Specialty Start Date End Date Ja Howe MD PCP - Pediatrics 10/02/09 Ja Howe MD PCP - General Pediatrics 12/13/14
--- OUTSIDE RECORDS SUMMARY | 2025-03-29 16:21 | XMS_ITS | Clinical Summary ---
Author Organization 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
--- OUTSIDE RECORDS SUMMARY | 2025-03-29 16:21 | XMS_ITS | Clinical Summary ---
Author Organization [facility] Address [address] [place] [address] Care Team Providers Care Transfer Controller Name Role Phone Unavailable Primary Care Provider [...]
--- OUTSIDE RECORDS SUMMARY | 2025-03-29 16:21 | XMS_ITS | Encounter Summary ---
Author Organization [facility] Address [address] [address] Care Team Providers Care Transportation Analyst Name Role Phone Ja Howe MD Unavailable [phone] Ja Howe MD Primary Care Provider [phone] Reason for Visit * Reason Onset Date Comments MEDICATION REFILL 12/15/2024 Encounter Details Date Type Department Care Team (Late st Contact Info) Description 12/15/2024 Telephone [facility] - Pediatrics [address] [place] [address] Ja Howe MD [address] [place] [address] MEDICATION REFILL Social History Tobacco Use Types Packs/Day Years Used Date Smoking Tobacco: Never Smokeless Tobacco: Never Alcohol Use Standard Drinks/Week Comments Not Asked 0 (1 standard drink = 0.6 oz pur e alcohol) Comments No Sex and Gender Information Value Date Recorded Sex Assigned at Not on file 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
--- NOTE | 2025-03-29 16:25 | WPDHPUPDATE1 ---
History and Physical Update Update Date/Time: 03/29/25 16:25 History and Physical has been reviewed, including an updated exam of the patient. There are NO changes in the patient's condition. Risks, benefits, and alternatives have been discussed and questions answered. Patient agrees to proceed with procedure.
[2025-03-29] MEDS: PIPERACILLIN/TAZOBACTAM SOD 3.375 GM in SODIUM CHLORIDE 0.9% IV 50 ML 100 ML IVPB (16:31)
--- NOTE | 2025-03-29 16:42 | WPDANESEPPF ---
Anes - Initial Pre Proc Eval Procedure: Operation Date: 03/29/25 17:00 Proposed Procedures p Laparoscopic Appendectomy, Possible Open - Ubaldo Hardwick MD Date/Time: 03/29/25 16:42 Surgeon: Ubaldo Hardwick MD Pre Op Diagnosis: Uncontrolled N/V x 6hrs-abdominal pain Patient Data Age: 19 Gender: F Height: 1.65 m Weight: 64 kg Last Vital Signs Temp 36.4 C 03/29/25 12:54 Pulse 74 03/29/25 16:35 Resp 18 03/29/25 16:35 BP 116/57 L 03/29/25 12:54 Pulse Ox 100 03/29/25 16:35 O2 Del Method Room Air 03/29/25 12:54 Allergies Allergy/AdvReac Type Severity Reaction Status Date / Time shellfish derived AdvReac Intermediate Hives Verified 03/29/25 12:59 Laboratory Tests 03/29/25 03/29/25 14:29 14:30 WBC 12.8 H K/mm3 (4.5-10.0) RBC 4.35 M/mm3 (4.2-5.4) Hgb 12.2 g/dL (12.0-15.0) Hct 38.1 % (37.0-47.0) MCV 87.6 fl (80-100) MCH 28.0 pg (26-34) MCHC 32.0 g/dl (32-36) RDW 12.5 % (11.5-14.5) Plt Count 307 k/mm3 (150-375) MPV 9.6 fl (7.4-10.4) Immature Gran % (Auto) Not Reportable Neut % (Auto) Not Reportable Lymph % (Auto) Not Reportable [place] % (Auto) Not Reportable Eos % (Auto) Not Reportable Baso % (Auto) Not Reportable Lymph # (Auto) Not Reportable [place] # (Auto) Not Reportable Eos # (Auto) Not Reportable Baso # (Auto) Not Reportable Abs Immat Gran (auto) Not Reportable Absolute Neuts (auto) Not Reportable Absolute Nucleated RBC Not Reportable Total Counted 100 Neutrophils % (Manual) 88 H % (46-73) Band Neutrophils % 0 % (0-6) Lymphocytes % (Manual) 11 L % (18-44) Monocytes % (Manual) 1 L % (3-9) Eosinophils % (Manual) 0 % (0-4) Basophils % (Manual) 0 % (0-1) Nucleated RBC % Not Reportable Abs Neuts (Manual) 11.26 H K/mm3 (1.3-6.7) Abs Lymphs (Manual) 1.40 K/mm3 (1.1-4.5) Abs Monocytes (Manual) 0.12 K/mm3 (0.1-0.90) Absolute Eos (Manual) 0.00 L K/mm3 (0.02-0.50) Abs Basophils (Manual) 0.00 K/mm3 (0.0-0.1) Atypical Lymphocytes Present Platelet Estimate Adequate (Adequate) Schistocytes None seen Sodium 136 L mmol/L (137-145) Potassium 4.2 mmol/L (3.4-5.0) Chloride 104 mmol/L (98-107) Carbon Dioxide 22 mmol/L (22-30) Anion Gap 10 mmol/L (4-12) BUN 11 mg/dL (7-17) Creatinine 0.60 L mg/dL (0.7-1.0) Estim Creat Clear Calc 114 ml/min Estimated GFR > 60 (59 - ) Glucose 104 mg/dL (65-110) Calcium 9.4 mg/dL (8.4-10.2) Total Bilirubin 0.7 mg/dL (0.2-1.3) AST 23 U/L (14-36) ALT 18 U/L (6-35) Alkaline Phosphatase 124 U/L (38-126) Total Protein 8.2 g/dL (6.3-8.2) Albumin 4.5 g/dL (3.5-5.1) Lipase 50 U/L (23-300) Urine Color Yellow (Yellow) Urine Appearance Cloudy H (Clear) Urine pH 5.5 (5.0-9.0) Ur Specific [place] 1.023 (1.001-1.035) Urine Protein Negative mg/dL (Negative) Urine Glucose (UA) Negative mg/dL (Negative) Urine Ketones Trace H mg/dL (Negative) Ur Blood (Man) Trace (Negative) Urine Nitrate Negative (Negative) Urine Bilirubin Negative (Negative) Urine Urobilinogen 0.2 mg/dL (<2.0) Add Ur Microanalysis Reviewed Leukocyte Esterase Rfl 1+ H JOZEF/UL (Negative) Urine RBC 6-10 H /hpf (0-2) Urine WBC 0-5 /hpf (0-3) Ur Squamous Epith Cells Few /hpf (Few) Urine Bacteria 1+ H /hpf Urine Casts 0-2 POC Urine HCG, Qual Negative (Negative) Patient hx anesthesia problems: none Family hx anesthesia problems: none Results Review: All pre-operative results and documents have been reviewed as part of the pre-operative evaluation. [facility] Past Medical History Medical History Headaches due to old head injury Depression Surgical History Surgical History History of esophagogastroduodenoscopy (EGD) Anes - Eval Final PreProcedure Day of Procedure 03/29/25 16:42 Patient weight: normal Heart: regular rate and rhythm Lungs: clear to auscultation Airway: Mallampati scale class II Neurological: alert and oriented Last oral intake: >/= 8 hours ASA classification: II Emergent: no Anesthetic plan: proceed Anesthesia type and monitoring: general ETT and standard monitoring Results Review: All pre-operative results and documents have been reviewed as part of the pre-operative evaluation. Informed Consent: The patient's anesthetic plan and its attendant risks and benefits were discussed with the patient/family/POA. Questions were solicited and answers provided to the satisfaction of the patient/family/POA.
[2025-03-29] MEDS: LACTATED RINGERS 1,000 ML 30 ML IV CONT ×2 (16:47→18:05)
[2025-03-29] MEDS: LIDO 1%/EPINEPHRINE 1:100,000 20 ML VIAL 30 ML INFILTRATE (17:14)
[2025-03-29] MEDS: BUPivacaine HCL 0.5% 10 ML AMP 30 ML INFILTRATE (17:16)
--- NOTE | 2025-03-29 17:38 | S_PTH ---
PATIENT: Yary Morales LOC: [facility] U#:[id number] AGE/SX: 19/F ROOM: RE03/29/[address]: Ubaldo Hardwick MD : 2005 BED: DIS: 03/29/2025 SPEC #: [id number] RECD: 03/30/25 08:40 STATUS: HEAVEN REUlises #: [id number] CONNIE: 03/29/25 17:[address]: Ubaldo Hardwick DEPT: [facility] Surgical RECD BY: Florida Birch MLT, ([facility]) ENTERED: 03/30/25 08:40 SP TYPE: Surgical OTHR DR: Shelley McdonaldMD Tissues: A - Appendix Procedures: Hematoxylin and Eosin Stain Gross and Microscopic Level 3
--- NOTE | 2025-03-29 18:01 | P.OP_ITS ---
Procedure Note - Detailed Date of Procedure 03/29/25 Pre-op Diagnosis Acute appendicitis Post-op Diagnosis Same Procedure Performed Laparoscopic appendectomy Surgeon Ubaldo Hardwick MD Geography Department Chair Lety WINKLER Anesthesia General Indications Patient is a 19-year-old female presents to the emergency with a 10hour history of periumbilical and lower abdominal pain which eventually localized to the right lower quadrant of the abdomen. The mild leukocytosis of 12,000. CT scan abdomen pelvis showed a dilated appendix up to 7mm in diameter with a thickened wall. No periappendiceal abscess or perforation was seen. She presents now for an emergent laparoscopic appendectomy. Findings The appendix was moderately inflamed without evidence of gangrene or perforation. The base of the appendix was normal without acute inflammation. Description of Procedure After informed consent was obtained patient brought to the operating room she was placed supine position and then general endotracheal anesthesia was administered. A John catheter was placed decompress the bladder. The abdomen was then prepped and draped usual sterile fashion. A time-out was then performed correctly identifying the patient as well as procedure to be performed. She was given a single dose of Zosyn for IV antibiotic coverage. I then made a small incision in the left upper quadrant and then utilizing a 5mm Optiview port I entered the abdomen under direct visualization. Once inside the abdomen insufflated to adequate pneumoperitoneum of 15mmHg of CO2. The patient was then placed in the head-down Trendelenburg position along the bowel to fall out of the pelvis. The pain patient very mobile cecum and the cecum was actually in the midline of the pelvis. Once the cecum was out the pelvis I could easily see the appendix which was mildly inflamed throughout its distal 2/3. The base the appendix appeared to be normal without inflammation. There is no gangrene of the appendix and no periappendiceal abscess. Another 5mm trocar port was then placed in suprapubic position. A 12mm trocar ports then placed in the periumbilical area under direct visualization. Working through these trocar ports I then held the appendix with a laparoscopic grasper into expose the base of the appendix. A laparoscopic grasper was then used to make a defect through the mesoappendix and then a 45mm Endo-ESME stapler was used to divide the appendix flush with the cecum. A vascular reload to the Endo-ESME stapler was then used to divide the mesoappendix. The appendix was then placed into an Endo-Catch bag and brought out through the periumbilical trocar port site. The appendix was then passed off table sent to pathology for examination. I inspected both staple lines and there was a small amount of bleeding from the cecal staple line 3rd this was treated with judicious electrocautery to achieve hemostasis. I then irrigated out the right lower quadrant the abdomen and both staple lines. Hemostasis was good. I aspirated the fluid from the pelvis from the right lower quadrant the abdomen. I then proceeded to remove all the trocar ports under direct visualization. All port sites appeared hemostatic. The abdomen was then allowed to decompress. I irrigated all the port sites sterile saline solution and then the 12mm periumbilical trocar port fascial defect was closed utilizing 0 Vicryl suture at the fascial level to close the defect. The skin edges in all the port sites were then approximated utilizing a running subcuticular 4 Monocryl suture. 1% lidocaine mixed with 0.5% Marcaine with some epinephrine injected around all the port sites for postoperative pain relief. Incisions were then cleaned the skin glue was applied. The patient tolerated the procedure well no complications. All sponges, needles, and instrument counts were correct at the end procedure. EBL was _10__cc. The patient was awakened and taken to recovery in stable and satisfactory condition. Implants None Estimated Blood Loss 10 Drains No Packing No Pathology Yes (Appendix to pathology.) Complications No immediate complications Condition Stable Disposition PACU [facility] Billing Surgery - Charge Forward: Surgery Billing
[2025-03-29] MEDS: oxyCODONE HCL (*CRX) 5 MG TAB IR PO (19:14)
== END 2025-03-29 19:44 | disposition home or self-care (01) ==
LOC: ANHED 16:12 → ANHSURGERY 16:19
PROVIDERS: Emergency Provider Physician Assistant; PCP Pediatrics; Visit Provider Surgery
PROC: 0DTJ4ZZ Resection of Appendix, Percutaneous Endoscopic Approach (ICD-10-PCS; CPT 44970; principal; 2025-03-29 17:00)
DX: K35.30 Acute appendicitis with localized peritonitis, without perforation or gangrene (principal); F32.A Depression, unspecified
CPT/HCPCS: 44970; 36415; 74177; 80053; 81001; 81025; 83690; 85025; 87086; 88304; 96361; 96374; 96375; 99285; A9270; J0330; J1100; J1200; J1885; J2003; J2004; J2250; J2405; J2543; J2704; J3010; J7030; J7120; Q9967